=== PATIENT | male | born 1980 | race Hispanic/Latino ===

== ENCOUNTER → 2025-09-06 | Emergency (ER) | payer OTHER ==
[~2025-09-06] VITALS: Ht 175.3 cm; Wt 97.5 kg
[~2025-09-06] MED LIST: 0.9%NACL 1000ML 1,000 ML IV SCH; ONDA-243 PO
[2025-09-06 01:06] LABS: IMMATURE GRANULOCYTE ABSOLUTE 0.03 K/uL (0-1); NUCLEATED RED BLOOD CELLS 0.0 % (0.0-0.19); PLATELET COUNT (AUTO) 205 K/uL (130-400); RED BLOOD CELL COUNT(AUTO) 5.60 MIL/uL (4.50-6.20); RED CELL DISTRIBUTION WIDTH 12.1 % (11.0-15.5); WHITE BLOOD COUNT (AUTO) 14.7 K/uL (4.8-10.8)
[2025-09-06] MEDS: 0.9%NACL 1000ML 1,000 ML IV SCH (01:06)
--- NOTE | 2025-09-06 01:07 | ERN ---
General Chief Complaint: Multiple Complaints Stated Complaint: SYNCOPE, NAUSEA, DIARRHEA Time Seen by MD: 00:39 History of Present Illness Initial Comments 45-year-old male no past medical history remarkable presents to emergency room with the complaints of syncope status post gastroenteritis episode. Patient states he was in his normal state of health until 8:00 p.m. earlier today when he was at a family member's house. He started having GI symptoms including vomiting and diarrhea. He was in the his own bathroom at home when his heard a thump and found the patient on the floor passed out. She states that he was unconscious briefly, got alcohol swabs and the patient came about. Patient states he has had over 20 episodes of diarrhea today. Had two episodes of nonbilious nonbloody emesis. Mild abdominal pain. No fever no cough no shortness a breath. No chest pain or palpitations. Allergies: Coded Allergies: No Known Allergies (Unverified Allergy, Unknown, 09/06/25) Past Medical History Past Medical History: No Pertinent History Past Surgical History: None Gastrointestinal/Abdominal: (+) vomiting, (+) diarrhea Neuro: (+) syncope Review of Systems: was completed, & the rest were negative. Physical Exam General Appearance: (+) no apparent distress Orientation: (+) alert, (+) oriented x 3 Eye: bilateral eye normal inspection, bilateral eye PERRL, bilateral eye EOMI Ear, Nose, Throat: (+) hearing grossly normal, (+) normal ENT inspection Ear, Nose, Throat Comment Dry, tacky mucous membrane Neck: (+) normal inspection, (+) supple Respiratory: (+) chest non-tender, (+) lungs clear, (+) well ventilated Heart: (+) regular; (-) murmur, (-) irregular Gastrointestinal: (+) soft, (+) non-tender Results Laboratory and Microbiology Lab and Micro Result Laboratory Tests Test 09/06/25 00:55 White Blood Count 14.7 K/uL (4.8-10.8) H Red Blood Count 5.60 MIL/uL (4.50-6.20) Hemoglobin 17.4 g/dL (14.0-18.0) Hematocrit 49.6 % (42-54) Mean Corpuscular Volume 88.6 fL (79-99) Mean Corpuscular Hemoglobin 31.1 pg (27.0-33.0) Mean Corpuscular Hemoglobin Concent 35.1 g/dL (32.0-36.0) Red Cell Distribution Width 12.1 % (11.0-15.5) Platelet Count 205 K/uL (130-400) Mean Platelet Volume 11.1 fL (7.5-10.5) H Immature Granulocyte % (Auto) 0.2 % (0-1) Neutrophils (%) (Auto) 77.9 % (40.0-77.0) H Lymphocytes (%) (Auto) 17.3 % (21.0-51.0) L Monocytes (%) (Auto) 3.9 % (3.0-13.0) Eosinophils (%) (Auto) 0.4 % (0.0-8.0) Basophils (%) (Auto) 0.3 % (0.0-5.0) Neutrophils # (Auto) 11.5 K/uL (1.8-7.7) H Lymphocytes # (Auto) 2.5 K/uL (1.0-4.8) Monocytes # (Auto) 0.6 K/uL (0.1-1.0) Eosinophils # (Auto) 0.06 K/uL (0.00-0.70) Basophils # (Auto) 0.05 K/uL (0.00-0.20) Absolute Immature Granulocyte (auto 0.03 K/uL (0-1) Nucleated Red Blood Cells 0.0 % (0.0-0.19) Sodium Level 133 mmol/L (136-145) L Potassium Level 3.3 mmol/L (3.5-5.1) L Chloride Level 97 mmol/L (101-111) L Carbon Dioxide Level 22 mmol/L (21-32) Blood Urea Nitrogen 20 mg/dL (7-18) H Creatinine 1.7 mg/dL (0.5-1.3) H Glomerular Filtration Rate Calc 50 mL/min (>90) Random Glucose 164 mg/dL (70-105) H Lactic Acid Level 2.1 mmol/L (0.8-2.5) Total Calcium 9.4 mg/dL (8.5-10.1) Magnesium Level 2.40 mg/dL (1.80-2.40) Troponin I High Sensitivity < 4 ng/L (4-75) L Lipase 45 U/L (16-77) EKG/XRAY/US/CT/MRI CT Scan Comment EXAM: Non-contrast CT examination of the Brain CLINICAL HISTORY: Fall. TECHNIQUE: Thin collimated axial CT images of the brain were obtained with sagittal and coronal reformatted images also submitted. CT scan is done according to ALARA (As Low as Reasonably Achievable). CONTRAST USED: None. COMPARISON: None provided. FINDINGS: No acute intracranial abnormality is present. No acute cortical infarction, hemorrhage, mass, or mass effect. No hydrocephalus or abnormal extra-axial fluid collections. The posterior fossa is unremarkable. The skull base and calvarium are intact. The included portions of the paranasal sinuses and mastoid air cells are clear. Nonspecific degenerative dural calcification around the frontal falx cerebri. IMPRESSION: No acute intracranial abnormality is present. MDM MDM: DIFFERENTIAL DIAGNOSIS: Syncope, gastroenteritis, vasovagal RATIONALE: TESTS CONSIDERED AND ORDERED SECONDARY TO SHARED DECISION MAKING INCLUDE: PREVIOUS OUTSIDE RECORDS REVIEWED: OLD ER VISITS. RISK OF COMPLICATION AND/OR MORBIDITY OR MORTALITY OF PATIENT MANAGEMENT: NONE MEDICATIONS-PER MEDICATION RECONCILIATION NEED FOR HOSPITALIZATION: PATIENT DOES NOT MEET CRITERIA FOR HOSPITALIZATION. NEED FOR EMERGENCY MAJOR/MINOR SURGERY: NO THERE ARE NO SOCIAL CONCERNS WITH THIS PATIENT. PRESCRIPTION DRUG MANAGEMENT PRESCRIPTIONS WILL INCLUDE SYMPTOMATIC CARE PATIENT'S PRIOR EXTERNAL MEDICAL RECORDS FROM OTHER ER VISITS WERE REVIEWED BY ME INDICATED. PRIOR TESTING AND RESULTS FROM PREVIOUS VISITS WERE REVIEWED. PRIOR TESTS WERE TAKEN INTO ACCOUNT WITH MEDICAL DECISION MAKING AND RESOURCE UTILIZATION, INDEPENDENT HISTORIAN/HISTORIANS WERE USED TO OBTAIN COMPLETE [facility] HISTORY. I INDEPENDENTLY INTERPRETED THE TEST THAT WERE PERFORMED, RESULTS WERE REVIEWED BY ME AND CONSIDERED FINDINGS ON RADIOLOGY IF ORDERED. MEDICAL MANAGEMENT AND EXAMINATION INTERPRETATION DISCUSSIONS WERE HAD BY ME WITH OTHER QUALIFIED HEALTHCARE PROFESSIONALS INDICATED FOR THE PATIENT'S CARE. ED Course Orders Procedure Category Date Status Time Cbc With Differential LAB 09/06/25 Complete 00:49 Basic Metabolic Panel LAB 09/06/25 Complete 00:49 Lipase LAB 09/06/25 Complete 00:49 Troponin I High LAB 09/06/25 Complete Sensitivity 00:49 12 Lead Ekg Tracing- EKG 09/06/25 Logged Technical 00:49 Urinalysis Profile LAB 09/06/25 Logged 00:49 Drug Screen Urine LAB 09/06/25 Logged 00:49 0.9%Nacl 1000ml (Ns PHA 09/06/25 In Process 1000ml) 01:00 Ondansetron 4mg Inj PHA 09/06/25 Complete (Zofran 4mg Inj) 01:00 Ct Head/Brain W/O CT 09/06/25 Resulted Contrast 00:59 12 Lead Ekg Tracing- EKG 09/06/25 Logged Technical 00:59 Lactic Acid LAB 09/06/25 Complete 01:01 Magnesium LAB 09/06/25 Complete 01:53 0.9%Nacl 1000ml (Ns PHA 09/06/25 Logged 1000ml) 03:00 Current Medications Medications (Trade) Dose Ordered Sig/Maxwell Route PRN Reason Start Time Stop Time Status Last Admin Dose Admin Ondansetron HCl (zoFRAN 4MG INJ) 4 mg ONCE ONCE IVP 09/06/25 01:00 09/06/25 01:05 DC 09/06/25 01:08 Sodium Chloride 1,000 ml @ 0 mls/hr Q0M IV 09/06/25 01:00 10/06/25 00:59 09/06/25 01:06 Sodium Chloride 1,000 ml @ 0 mls/hr Q0M IV 09/06/25 03:00 10/06/25 02:59 UNV Vital Signs Date Time Temp Pulse Resp B/P (MAP) Pulse Ox O2 Delivery O2 Flow Rate FiO2 09/06/25 01:10 98.8 87 18 110/65 Room Air* 0 21 09/06/25 00:37 96.1 72 18 94/63 99 Room Air 2:50 a.m.: Labs and imaging reviewed with the patient. Noted to have a white blood cell count however this is likely due to gastroenteritis. Patient hydrated at this time. We will also give potassium prior to discharge home. Patient's prior external medical records from other ER visits were reviewed by me as indicated. Prior testing and results from previous visits were reviewed. Prior tests were taken into account with medical decision making and resource utilization, independent historian/historians were used to obtain complete medical history. I independently interpreted the test that were performed, results were reviewed by me and considered findings on radiology if ordered. Medical management and examination interpretation discussions were had by me with other qualified healthcare professionals as indicated for the patient's care. Labs and imaging reviewed with patient. All questions answered at this time. Patient advised to follow up with primary care physician in the next few days. Patient well-appearing, no acute distress. Vital signs stable. Will discharge at this time. DX & DISP Disposition: Discharge Departure Impression: Primary Impression: Gastroenteritis Additional Impression: Hypokalemia Condition: Stable Scripts Ondansetron (Ondansetron Odt) 4 Mg Tab.rapdis 1 TAB PO Q6HPRN PRN for nausea/vomiting for 4 Days, #16 TAB 0 Refills Prov: YESICA LOYA MD 09/06/25 Referrals: NIELS CARL MD (PCP) YESICA LOYA MD Sep 06, 2025 01:07
[2025-09-06 01:20] LABS: CREATININE 1.7 mg/dL (0.5-1.3); GLOMERULAR FILTR. RATE CALC 50.0 mL/min (>90); GLUCOSE,RANDOM 164.0 mg/dL (70-105); SODIUM SERUM 133.0 mmol/L (136-145); UREA NITROGEN, BLOOD 20.0 mg/dL (7-18)
--- NOTE | 2025-09-06 02:38 | HMCIMG ---
EXAM: Non-contrast CT examination of the Brain CLINICAL HISTORY: Fall. TECHNIQUE: Thin collimated axial CT images of the brain were obtained with sagittal and coronal reformatted images also submitted. CT scan is done according to ALARA (As Low as Reasonably Achievable). CONTRAST USED: None. COMPARISON: None provided. FINDINGS: No acute intracranial abnormality is present. No acute cortical infarction, hemorrhage, mass, or mass effect. No hydrocephalus or abnormal extra-axial fluid collections. The posterior fossa is unremarkable. The skull base and calvarium are intact. The included portions of the paranasal sinuses and mastoid air cells are clear. Nonspecific degenerative dural calcification around the frontal falx cerebri. IMPRESSION: No acute intracranial abnormality is present. /[place]
[2025-09-06 03:21] VITALS: BP 121/60; PULSE 85; RESP 18; TEMP 98.5; O2SAT 99
--- NOTE | 2025-09-06 09:10 | EKG ---
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
== END ==
LOC: EDH 00:35
DX: K52.9 Noninfective gastroenteritis and colitis, unspecified (principal); E87.6 Hypokalemia
CPT/HCPCS: 99285; 96374; 70450; 83735; 84484; 80048; 83690; 85025; 83605; 36415; 93005; J7030; J2405